=== PATIENT | female | born 1945 | race Caucasian/White ===

== ENCOUNTER 2025-01-26 07:27 | Inpatient (IN) | payer MEDICARE, SELFPAY ==
[2025-01-26] VITALS (7 sets, daily range): BP systolic 121–159; BP diastolic 47–78; PULSE 60–110; RESP 14–18; TEMP 36.4–36.9; O2SAT 94–96; BMI 30.6; BMI 29.6
--- NOTE | ~2025-01-26 | CT_ITS ---
EXAMINATION: CT ABDOMEN PELVIS WITH IV CONTRAST HISTORY: LLQ pain COMPARISON: There are no prior studies for available comparison. TECHNIQUE: CT scan of the abdomen and pelvis was performed following administration of 85 mL Omnipaque 350 using standard departmental protocol. Coronal and sagittal reformatted images were generated and reviewed. Oral contrast material was not administered at the request of the referring physician. This CT exam was performed with one or more of the following dose reduction techniques: automated exposure control, adjustment of the mA and/or kV according to patient size, use of iterative reconstruction technique. DLP: 507 mGy-cm FINDINGS: LOWER CHEST: The visualized lung bases are clear. There is no pleural effusion. CARDIOVASCULATURE: The heart is normal in size. There is no pericardial effusion. LIVER: The liver is normal in size and contour. No liver mass is identified. The hepatic and portal veins are patent. GALLBLADDER / BILE DUCTS: The gallbladder is surgically absent. There is mild intra and extrahepatic biliary ductal dilatation, likely on the basis of prior cholecystectomy. SPLEEN: The spleen is normal in size. No focal splenic lesion is identified. PANCREAS: The pancreas is unremarkable in appearance. ADRENAL GLANDS: Within normal limits. KIDNEYS/RETROPERITONEUM: There is a 2 mm nonobstructing calculus at the upper pole of the right kidney and a 3 mm nonobstructing calculus at the lower pole. No left renal calculi are identified. There is no hydronephrosis. No renal masses are identified. LYMPH NODES: No abdominal or pelvic lymphadenopathy. VASCULATURE: The abdominal aorta demonstrates atherosclerotic calcification, but is normal in caliber. MESENTERY/PERITONEUM: No free fluid. No masses. There is no free intraperitoneal gas. STOMACH: The stomach is collapsed, limiting evaluation. SMALL BOWEL: The small bowel is normal in caliber. COLON: There is a large amount of stool throughout the colon. There is diverticulosis of the descending and sigmoid colon. There is focal wall thickening and pericolonic inflammatory stranding at the junction of the descending and sigmoid colon, consistent with diverticulitis. There is no associated intraluminal gas or loculated fluid collection. APPENDIX: The appendix is not seen, however no inflammatory changes are seen adjacent to the cecum. URINARY BLADDER/PELVIC ORGANS: The urinary bladder is collapsed, limiting evaluation. The patient is status post hysterectomy. BONES / SOFT TISSUES: There is moderate levoscoliosis and degenerative disc disease of the spine. CT/CT abdomen pelvis w IV con IMPRESSION: Diverticulitis at the junction of the descending and sigmoid colon as described. Electronically signed by: Ed Nixon MD 01/26/2025 09:08 AM EDT
--- NOTE | 2025-01-26 07:34 | ECG_ITS ---
Test Reason : chest pain Blood Pressure : */* mmHG Vent. Rate : 90 BPM Atrial Rate : 90 BPM P-R Int : 140 ms QRS Dur : 114 ms QT Int : 404 ms P-R-T Axes : 47 11 20 degrees QTcB Int : 494 ms Normal sinus rhythm Right bundle branch block Abnormal ECG When compared with ECG of 27-Apr-2012 12:39, Right bundle branch block present Referred By: Erika Francis Electronically Signed By: Brady Samano
--- OUTSIDE RECORDS SUMMARY | 2025-01-26 07:52 | XMS_ITS ---
[facility] Team Organization Name Specialty Phone Email Start Date End Da te [facility] Madelin Reyes DO Primary Care 04/22/202201/13
--- OUTSIDE RECORDS SUMMARY | 2025-01-26 07:52 | XMS_ITS | Clinical Summary ---
Author Organization [address] [facility] Address [address] [place] [address] Phone Care Team Providers Care Agronomy Instructor Name Role Phone Magalys Espinoza MD Primary Care Provider Allergies Active Allergy Reactions Criticality Noted Date Comments Acetaminophen-Codeine Nausea And Vomiting 05/14 Codeine 05/26/2006 Naproxen Swelling 12/11/2009 Medications levothyroxine (SYNTHROID, LEVOTHROID) 50 mcg tablet Take 1 tablet (50 mcg total) by mouth 1 (one) time each day. 4 Active simvastatin (ZOCOR) 20 mg tablet Take 1 tablet (20 mg total) by mouth 1 (one) time each day. 4 Active calcium carbonate-vitamin D3 500 mg-15 mcg (600 unit) tablet TAKE 1 TABLET BY MOUTH EVERY DAY 4 Active senna 8.6 mg tablet TAKE 1 TABLET BY MOUTH DAILY NEEDED FOR OTHER. 4 Active diclofenac (VOLTAREN) 1 % topical gel APPLY TOPICALLY 1 ACTUATION TWICE A DAY NEEDED FOR SEVERE JOINT PAIN 4 Active magnesium oxide (MAG-OX) 400 mg magnesium tablet Take by mouth. Active meloxicam (MOBIC) 15 mg tablet Take 15 mg by mouth daily. Active multivitamin (MULTIPLE VITAMINS ORAL) Take by mouth. Active calcium carbonate-vitamin D3 600 mg-5 mcg (200 unit) per tabletIndications :Age-related osteoporosis without current pathological fracture TAKE 1 TABLET BY MOUTH EVERY DAY 90 tablet 1 5 Active losartan-hydroCHL OROthiazide (HYZAAR) 100-12.5 mg per tabletIndications :Essential (primary) hypertension TAKE 1 TABLET BY MOUTH EVERY DAY 90 tablet 1 5 Active Hospital, Clinic, or Other Facility Administered Medication Ordered Dose Route Frequency Start Date End Date Status TC-99M tetrofosmin P radio-isotope injection 10.7 millicurie 10.7 millicurie IV Once in imaging 12/28/2024 12/28/2024 Ende d regadenoson (LEXISCAN) injection 0.4 mg 0.4 mg IV Once in imaging 12/28/2024 12/28/2024 End ed TC-99M tetrofosmin P radio-isotope injection 32.1 millicurie 32.1 millicurie IV Once in imaging 12/28/2024 12/28/2024 Ende d Active Problems Problem Noted Date Diagnosed Date Other chest pain 12/09/2024 Assessment & Plan (12/09/2024 1:39 PM EDT): Will need to assess ischemia. Will schedule nuclear perfusion stress test with either exercise or regadenoson. Will check BMP, TSH. Nonrheumatic aortic valve stenosis 12/06/2024 Assessment & Plan (12/09/2024 1:39 PM EDT): By physical exam, aortic stenosis does not sound severe. Will update echocardiogram. Orders: Transthoracic echocardiogram (TTE) complete with PRN contrast, bubble, strain, and 3D order panel; Future Episodic cluster headache, not intractable 05/14 Murmur, heart 11/26/2022 Osteoporosis without current pathological fractu re 10/15/2022 Elevated ferritin level 09/15/2022 Arachnoid cyst 07/05/2018 Stress incontinence of urine 12/03/2017 Allergic rhinitis 04/20/2017 Arthritis 04/20/2017 Overview (05/06/2024): Hands, knees, Dr Jose DDD (degenerative disc disease), cervical 2016 DDD (degenerative disc disease), lumbar 04/20/20 17 Diverticulosis 04/20/2017 Overview (05/06/2024): CN 2010 Esophageal reflux 04/20/2017 History of total knee replacement, bilateral 11/2016 HTN (hypertension) 04/20/2017 Hypothyroid 04/20/2017 Migraines 04/20/2017 Osteopenia 04/20/2017 Overview (05/06/2024): Last DEXA 01/22/17 Pure hypercholesterolemia 04/20/2017 Encounters Date Type Department Care Team Description 12/30/2024 Telephone [facility] Cardiology [facility] - [address] [place] [address] Suze Jerez MA Results (See note) 12/28/2024 9:00 AM EDT Ancillary Procedure [facility] Cardiology [facility] - [address] [place] [address] Chest pain, unspecified type 12/12/2024 3:00 PM EDT Ancillary Procedure [facility] - [address] [place] [address] History of aortic stenosis; Nonrheumatic aortic valve stenosis 12/09/2024 8:20 AM EDT Office Visit [facility] Cardiology [facility] - [address] [place] [address] Ariadna Thompson MD Chest pain, unspecified type (Primary Dx); History of aortic stenosis; Other fatigue; Nonrheumatic aortic valve stenosis; Other chest pain from Last 3 Months Immunizations Name Administration Dates Next Due Influenza Quadravalent, MDCK , 0.5ml, with preservative (Flucelvax) 6mo and older 05/12/2017 Influenza trivalent, 0.5mL ( Fluad) 65yo and older 04/04/2022,04/26/2021,04/11/2020,04/15 Moderna Covid-19 Bivalent, O riginal + Ba.1 (Non-US Tradename Spikevax Bivalent) 06/14/2021 Moderna SARS-CoV-2 COVID-19, mRNA, LNP-S, preservative free 06/14/2021 Pneumococcal conjugate 13 va lent (Prevnar 13, PCV13) 2mo and older 11/27/2014 Pneumococcal polysaccharide 23 valent (Pneumovax 23) 2yo and older 06/15/2012 Tdap Tetanus diptheria acell ular pertussis (Boostrix; Adacel) 7yo and older 05/31/2015 Surgical History Surgery Date Site/Laterality Comments COLONOSCOPY 01/17/2010 PROCEDURE: HISTORICAL COLONOSCOPY CHOLECYSTECTOMY 1979 PROCEDURE: HISTORICAL CHOLECYSTECTOMY TONSILLECTOMY age [age] PROCEDURE: HISTORICAL TONSILLECTOMY TOTAL KNEE ARTHROPLASTY 2005 Bilateral PROCEDURE: HISTORICAL TOTAL KNEE REPLACE HYSTERECTOMY 1979 PROCEDURE: HISTORICAL TOTAL HYSTERECTOMY WITH BSO; COMMENT: fibroids APPENDECTOMY PROCEDURE: HISTORICAL APPENDECTOMY CHOLECYSTECTOMY 1979 PROCEDURE: HISTORICAL CHOLECYSTECTOMY Medical History Medical History Date Comments Allergic rhinitis 04/20/2017 DX:Allergic rh initis DDD (degenerative disc disea se), cervical 04/20/2017 DX:DDD (degenerative disc di sease), cervical DDD (degenerative disc disea se), lumbar 04/20/2017 DX:DDD (degenerative disc di sease), lumbar Diverticulosis 04/20/2017 DX:Diverticulosi s; COMMENT: CN 2009 Esophageal reflux 04/20/2017 DX:Esophageal reflux History of replacement of mihai th shoulder joints 04/20/2017 DX:History of replacement of both shoulder joints History of total knee replac ement, bilateral 04/20/2017 DX:History of total knee rep lacement, bilateral HTN (hypertension) 04/20/2017 DX:HTN (hyper tension) Hypothyroid 04/20/2017 DX:Hypothyroid Migraines 04/20/2017 DX:Migraines Osteoarthritis 04/20/2017 DX:Osteoarthriti s; COMMENT: Hands, knees, Dr Jose Osteopenia 04/20/2017 DX:Osteopenia; C OMMENT: Last DEXA 01/22/17 Pure hypercholesterolemia 04/20/2017 DX:Pur e hypercholesterolemia Shingles rash 2014 DX:Shingles rash Cataract 2020 DX:Cataract; COM MENT: left and right eye Family History Medical History Relation Name Comments Heart attack Brother COD No Known Problems Daughter 1 Hypertension Daughter 2 Arthritis Father Colon cancer Father CABG in his 80' s Nephrolithiasis Father Diabetes Mother Arthritis Sister 1 Nephrolithiasis Sister 1 Nephrolithiasis Sister 2 Relation Name Status Comments Brother Daughter 1 Alive Daughter 2 Alive Father Mother Sister 1 Alive Sister 2 Alive Social History Tobacco Use Types Packs/Day Years Used Date Smoking Tobacco: Never Smokeless Tobacco: Never Alcohol Use Standard Drinks/Week Comments No 0 (1 standard drink = 0.6 oz pur e alcohol) Comments Unknown Sex and Gender Information Value Date Recorded Sex Assigned at Not on file Legal Sex Female 5:00 PM EST Gender Identity Not on file Sexual Orientation Not on file Obstetrics History Last Filed Vital Signs Vital Sign Reading Time Taken Comments Blood Pressure 151/75 12/28/2024 9:18 AM EDT Pulse 69 12/09/2024 8:16 AM EDT Temperature - - Respiratory Rate 16 06/27/2024 10:21 AM EST Oxygen Saturation 96% 12/09/2024 8:16 AM EDT Inhaled Oxygen Concentration - - Weight 72.1 kg (159 lb) 12/28/2024 9:07 AM EDT Height 162.6 cm (5' 4 ) 12/28/2024 9:07 AM EDT Body Mass Index 27.29 12/28/2024 9:07 AM EDT Plan of Treatment Upcoming Encounters Date Type Department Care Team (Late st Contact Info) Description 02/23/2025 10:40 AM EDT Office Visit [facility] [address] [facility] [address] [place] [address] Yue Adam NP [address] [place] [id number] Health Maintenance Due Date Last Done Comments Zoster Vaccines (1 of 2) 1994 RSV Immunization Adult Patients (1 - 1-dose 75+ series) 2019 Medicare Annual Wellness Visit 05/14/2022 Social Influencers of Health Screening 05/14/2022 COVID-19 Vaccine ( season) 2024 06/14/2021, 06/14/2021, 09/13/2020, Additional history exists Depression Screening 06/15/2024 02/11/2024 Influenza Vaccine (#1) 2025 , 04/04/2022, 04/26/2021, Additional history exists Hypertension/CHF/CAD Annual BMP Blood Test 03/14/2025 03/14/2024, 03/14/2024, 11/12/2023 Falls Risk Assessment 05/26/2025 05/26/2024 DTaP,Tdap,and Td Vaccines (2 - Td or Tdap) 05/31/2025 05/31/2015 Cholesterol Screening (Lipid Panel) 04/04/2027 04/04/2022 Osteoporosis Screening (Bone Density Screening) 10/06/2032 10/06/2022, 04/17/2020 Pneumococcal Vaccine: 50+ Years Completed 11/27/2014, 06/15/2012 HIB Vaccines Aged Out No longer eligi ble based on patient's age to complete this topic HPV Vaccines Aged Out No longer eligi ble based on patient's age to complete this topic Hepatitis A Vaccines Aged Out No long er eligible based on patient's age to complete this topic Hepatitis B Vaccines Aged Out No long er eligible based on patient's age to complete this topic IPV Vaccines Aged Out No longer eligi ble based on patient's age to complete this topic MMR Vaccines Aged Out No longer eligi ble based on patient's age to complete this topic Meningococcal ACWY Vaccine Aged Out N o longer eligible based on patient's age to complete this topic Meningococcal B Vaccine Aged Out No l onger eligible based on patient's age to complete this topic RSV Immunization Patients Under 20 months Aged Out No longer eligible based on patient's age to complete this topic Varicella Vaccines Aged Out No longer eligible based on patient's age to complete this topic Procedures Procedure Name Priority Date/Time Associated Diagnosis Comments NM LEXISCAN STRESS TEST W/ MYOCARDIAL PERFUSION Routine 12/28/2024 11:56 AM EDT Chest pain, unspecified type TRANSTHORACIC ECHOCARDIOGRAM (TTE) COMPLETE Routine 12/12/2024 3:30 PM EDT History of aortic stenosis Nonrheumatic aortic valve stenosis B-TYPE NATRIURETIC PEPTIDE Routine 12/09/2024 9:31 AM EDT Chest pain, unspecified type THYROID STIMULATING HORMONE Routine 12/09/2024 9:31 AM EDT Chest pain, unspecified type Other fatigue ECG 12-LEAD Routine 12/09/2024 8:22 AM EDT History of aortic stenosis ANNUAL BMP BLOOD TEST Routine 03/14/2024 DEPRESSION SCREENING Routine 02/11/2024 DXA BONE DENSITY STUDY 1+ SITS AXIAL SKEL Routine 10/06/2022 2:20 PM EDT Encounter for screening for osteoporosis LIPID PANEL Routine 04/04/2022 from Last 3 Months or Most Recently Relevant to Health Maintenance Results * NM LEXISCAN STRESS TEST W/ MYOCARDIAL PERFUSION (12/28/2024 11:56 AM EDT) Exercise/injec tion duration (min) 0 CV PACS STRESS Exercise/injec tion duration (sec) 34 CV PACS STRESS Peak SBP 151 mmHg CV PACS STRESS Peak DBP 75 mmHg CV PACS STRESS Peak HR 111 bpm CV PACS STRESS Baseline HR 63 bpm CV PACS STRESS Baseline SBP 151 mmHg CV PACS STRESS Baseline DBP 75 mmHg CV PACS STRESS Estimated workload 1.0 METS CV PACS STRESS Percent HR 79 % CV PACS STRESS Rate Pressure Product 16,761.0 mmHg*bpm CV PACS STRESS Target HR 119 bpm CV PACS STRESS TID 1.04 CV PACS STRESS Nuc Stress EF 88 % CV PAC S STRESS Nuc Rest EF 79 % CV PACS STRESS BSA 1.8 m2 CV PACS STRESS Anatomical Region Laterality Modality Nuclear Medicine 12/28/2024 10:1 1 AM EDT 12/28/2024 10:47 AM EDT Narrative 12/28/2024 2:11 PM EDT LV perfusion is normal. No evidence of ischemia or infarct by MPI after attenuation correction. Gated SPECT imaging showing normal LVEF >75%. Vasodilator (regadenoson) stress test was performed . Normal blood pressure response. ECG stress portion as documented below. Stress Findings A pharmacological stress test was performed using regadenoson, 0.4 mg IV over 10-15 seconds, followed by radiopharmacological injection 10 seconds post infusion. Total stress time was 0 min and 34 sec. Reversal medication aminophylline given. Blood pressure demonstrated a normal response. Heart rate demonstrated a normal response. The patient reported dizziness during the stress test that resolved with the administration of aminophylline. ECG 79-year-old female with a past medical history significant for hypertension, hyperlipidemia, chest discomfort and fatigue, in to rule out ischemia. On losartan during testing. Baseline EKG normal sinus rhythm T wave inversion on V2 and V3 during stress. T wave inversions in V2 and V3 in recovery. Nondiagnostic in the setting of a pharmacological nuclear stress test. Nuclear Study Quality Study technique: MPI, SPECT, multi, rest and stress, 1 day and gated. Overall image quality is good. CT attenuation correction was utilized. No radiopharmaceutical dose was extravasated. Perfusion Defect Conclusion There is no evidence of transient ischemic dilation (TID). Stress Function Comments Stress ejection fraction is 88%. Rest Function Comments Resting ejection fraction was 79%. Normal regional wall motion and thickening. CT Findings CT was performed for attenuation correction purposes not for diagnosis. Heavy coronary calcifications seen. Small splenic vessel calcifications and tiny focal R breast calcification. Perfusion Comments LV perfusion is normal. No fixed or reversible defects at rest or stress. us Ariadna Thompson MD CV STRESS PROCEDURES Final Resul t * (ABNORMAL) TRANSTHORACIC ECHOCARDIOGRAM (TTE) COMPLETE (12/12/2024 3:30 PM EDT) Left Atrium Minor [place] 4.9 cm CV PACS Left Atrium Major [place] 4.9 cm CV PACS LA Area Sys (A2C) 17 cm2 CV PACS LA Area Sys (A4C) 18 cm2 CV PACS LA Volume (BP) 52 mL CV PACS LA Size 4.3 cm CV PACS RA Area 12.1 cm2 CV PACS RA 2D Volume 30 mL CV PACS AV Regurgitation PHT 562 ms CV PACS AR Max Velocity 2.5 m/s CV PACS AV Peak Gradient 26 mmHg CV PACS AV Peak Moncho 2.5 m/s CV PACS AV Peak Gradient 24 mmHg CV PACS AV Mean Gradient 11 mmHg CV PACS Ao VTI 55.6 cm CV PACS AV Area Continuity Equation 1.2 cm2 CV PACS AV Area Peak Velocity 1.2 cm2 CV PACS Aortic Arch 3.0 cm CV PACS Ascending Aorta 3.7 cm CV PACS Aortic Sinus Valsalva 2.9 cm CV PACS IVC Proximal 1.4 cm CV PACS IVSD 1.1(A) 0.6 - 0.9 cm CV PACS LVIDD 4.3 3.8 - 5.2 cm CV PACS LVIDS 2.7 2.2 - 3.5 cm CV PACS LVOT Diameter 2.0 cm CV PACS LVOT Mean Moncho 0.5 m/s CV PACS LVOT Mean Grad 1 mmHg CV PACS LVOT Mean Grad 1 mmHg CV PACS LVOT Mean Grad 1 mmHg CV PACS LVOT Mean Grad 1 mmHg CV PACS LVOT Peak VTI 20.9 cm CV PACS LVOT Peak Moncho 0.9 m/s CV PACS LVOT Peak Gradient 3 mmHg CV PACS LVPWD 1.1(A) 0.6 - 0.9 cm CV PACS MV E' Tissue Velocity Lateral 5 cm/s CV PACS MV E' Tissue Velocity Septal 6 cm/s CV PACS LVOT Area 3.1 cm2 CV PACS LVOT Stroke Volume 66 mL CV PACS MV Deceleration [place] 2.6 m/s2 CV PACS E Wave Deceleration Time 248(A) 119 - 242 ms CV PACS MV PHT 73 ms CV PACS MV Peak A Moncho 0.99 m/s CV PACS MV Peak E Moncho 0.65 m/s CV PACS MV Mean Gradient 2 mmHg CV PACS MV VTI 31.0 cm CV PACS Mitral Valve Max Velocity 1.2 m/s CV PACS MV Peak Gradient 5 mmHg CV PACS MV Area PHT 3.0 cm2 CV PACS MV Area Continuity Equation 2.1 cm2 CV PACS PV Acceleration Time 116 ms CV PACS PV Acceleration Time 113 ms CV PACS PV Acceleration Time 115 ms CV PACS PV Mean Gradient 2 mmHg CV PACS PV VTI 24.7 cm CV PACS PV Peak Velocity 1.1 m/s CV PACS PV Peak Gradient 5 mmHg CV PACS RV Diastolic Basal Dimension 4.3(A) 2.5 - 4.1 cm CV PACS RV S' 11 cm/s CV PACS TAPSE 26 mm CV PACS TR Peak Velocity 2.70 m/s CV PACS TR Peak Gradient 29 mmHg CV PACS E/E' Ratio Septal 11 CV PACS E/E' Ratio Averaged 12 CV PACS Relative Wall Thickness ratio 0.51 CV PACS LVOT:AV VTI Index 0.38 CV PACS FS 37 % CV PACS LV Mass 2D 163 g CV PACS MV VTI:LVOT VTI ratio 1.5 CV PACS LVOT flow 157 mL/s CV PACS AV Velocity Ratio 0.36 CV PACS E/A Ratio 0.7 CV PACS E/E' Ratio Lateral 13 CV PACS BSA 1.8 m2 CV PACS LA Volume Index (BP) 29 mL/m2 CV PACS LVIDD Index 2.43 cm/m2 CV PACS LVIDS Index 1.53 cm/m2 CV PACS LV Mass Index 2D 92(A) 44 - 88 g/m2 CV PACS LVOT Stroke Index 37 mL/m2 CV PACS LA Dimension Index 2D 2.4 cm/m2 CV PACS RA 2D Volume Index 17 15 - 27 mL/m2 CV PACS VERÓNICA Index (VTI) 0.67 cm2/m2 CV PACS VERÓNICA Index (Pk Moncho) 0.68 cm2/m2 CV PACS Ascending Aorta Index 2.09 cm/m2 CV PACS Right Ventricular Peak Systolic Pressure 32 mmHg CV PACS Est. RA Pressure 3 mmHg CV PACS Anatomical Region Laterality Modality Ultrasound Narrative 12/13/2024 10:35 AM EDT Left ventricle cavity size is normal. There is mild concentric hypertrophy. Systolic function is normal with an ejection fraction of 60-65%. There are no regional LV wall motion abnormalities. There is Grade I (mild) diastolic dysfunction. Right ventricle cavity is normal. Right ventricular systolic function is normal. Aortic valve demonstrates mild stenosis. Trace aortic valve regurgitation. The right ventricular systolic pressure is normal. The RVSP is estimated at 32 mmHg. Compared to previous study of 11/06/2022, there are no significant change. Left Ventricle Left ventricle cavity size is normal. There is mild concentric hypertrophy. Systolic function is normal with an ejection fraction of 60-65%. There are no regional LV wall motion abnormalities. There is Grade I (mild) diastolic dysfunction. Right Ventricle Right ventricle cavity appears normal. Systolic function is normal. Left Atrium Left atrium cavity size is normal. Right Atrium Right atrium cavity is normal. IVC/SVC Inferior vena cava structure is normal. RA pressures is estimated to be 3 mmHg (IVC diameter <21 mm and decreases >50% during inspiration). Mitral Valve The leaflets are mildly thickened. There is trace regurgitation. There is no evidence of mitral valve stenosis. Tricuspid Valve Tricuspid valve structure is normal. There is mild regurgitation with a central jet. There is no evidence of tricuspid valve stenosis. The right ventricular systolic pressure is normal. The RVSP is estimated at 32 mmHg. Aortic Valve Number of aortic valve cusps cannot be determined. The leaflets are mildly thickened. There is trace regurgitation with a centrally directed jet. There is mild stenosis. Pulmonic Valve Pulmonic valve structure is normal. There is trace pulmonic valve regurgitation. There is no evidence of pulmonic valve stenosis. Ascending Aorta The ascending aorta is (3.7 cm). Pericardium Pericardium appears normal. There is no pericardial effusion. Study Details Overall the study quality was adequate. us Ariadna Thompson MD CV ECHO PROCEDURES Final Result * TSH (12/09/2024 9:31 AM EDT) TSH 1.17 0.40 - 4.00 mcIU/mL LAB CHEMISTRY METHOD 12/09/2024 11:56 AM EDT [facility] Blood Venous blood specimen / Unknown Venipuncture / Unknown 12/09/2024 9:31 AM EDT 12/09/2024 11:11 AM EDT us Ariadna Thompson MD LAB BLOOD ORDERABLES Final Resul t [facility] [address] [place] [address], * B-type natriuretic peptide (12/09/2024 9:31 AM EDT) BNP 26 <=100 pcg/mL LAB CHEMISTRY METHOD 12/09/2024 11:56 AM EDT [facility] Blood Venous blood specimen / Unknown Venipuncture / Unknown 12/09/2024 9:31 AM EDT 12/09/2024 11:16 AM EDT Ariadna Thompson MD LAB BLOOD ORDERABLES Final Resul t [facility] [address] [place] [address], * ECG 12 lead (12/09/2024 8:22 AM EDT) Pathologist [facility] Ventricular Rate ECG 69 BPM GEMUSE Atrial Rate 69 BPM GEMUSE P-R Interval 154 ms GEMUSE QRS Duration 82 ms GEMUSE Q-T Interval 434 ms GEMUSE QTc 465 ms GEMUSE P Wave [place] 77 degrees GEMUSE R [place] 62 degrees GEMUSE T [place] 70 degrees GEMUSE ECG Interpretation Normal sinus rhythm Borderline QT interval When compared with ECG of 24-APR-2009 10:20, No significant change was found Confirmed by Josselyn THOMPSON YUFENG ([id number]) on 12/09/2024 10:44:24 AM GEMUSE 12/09/2024 8:22 AM EDT 12/09/2024 10:44 AM EDT Ariadna Thompson MD ECG ORDERABLES Final Result Performing Organization Address City/[facility]/ZIP Co de Phone Number GEMUSE * Annual BMP Blood Test (03/14/2024) Pathologist [facility] Annual BMP Blood Test abstracted Historical Provider HEALTH MAINTENANCE Final Result * Depression Screening (02/11/2024) [facility] Depression Screening abstracted Historical Provider HEALTH MAINTENANCE Final Result * DXA BONE DENSITY STUDY 1+ SITS AXIAL SKEL (10/06/2022 2:20 PM EDT) Anatomical Region Laterality Modality Bone Densitometr y 09/15/2022 8:54 AM EDT Narrative 10/14/2022 7:02 PM EDT BONE DENSITY Lumbar Spine T-score is -1.4 (SD relative to 20-29 y/o adult) Z-score is +1.1 (SD relative to age matched peers) This is consistent with osteopenia by criteria defined by the WHO. Left Hip T-score is -2.7 Z-score is -0.5 This is consistent with osteoporosis by criteria defined by the WHO. Comparison exam(s): no statistically significant change in the bone density of the hip or L spine when compared to most recent bone density examination Confidence level is +/-95%. Impression: Based on the World Health Organization criteria, Alfred Norris should be classified as having osteoporosis. [facility] Department of Internal Medicine recommends using National Osteoporosis Foundation (NOF) guidelines in treatment decisions related to osteoporosis. NOF guidelines suggest considering treatment for postmenopausal women and men aged 50 or older presenting with the following: History of hip or vertebral fracture. T-score less than or equal to -2.5 (DXA) at the femoral neck, total hip, or spine, after appropriate evaluation to exclude secondary causes. Low bone mass (T-score between -1.0 and -2.5 at the femoral neck or spine) AND a 10-year probability of a hip fracture greater than or equal to 3% OR a 10-year probability of a major osteoporosis-related fracture greater than or equal to 20% based on the [place]-adapted WHO algorithm Please note that all treatment decisions require clinical judgment and consideration of individual patient factors, including patient preferences, co-morbidities, previous drug use, risk factors not captured in the FRAX model (e.g., frailty, falls, vitamin D deficiency, increased bone turnover, interval significant decline in bone density) and possible under- or over-estimation of fracture risk by FRAX. Procedure Note Alex Howe MD - 07/20/2023 BONE DENSITY Lumbar Spine T-score is -1.4 (SD relative to 20-29 y/o adult) Z-score is +1.1 (SD relative to age matched peers) This is consistent with osteopenia by criteria defined by the WHO. Left Hip T-score is -2.7 Z-score is -0.5 This is consistent with osteoporosis by criteria defined by the WHO. Comparison exam(s): no statistically significant change in the bonedensity of the hip or L spine when compared to most recent bone densityexamination Confidence level is +/-95%. Impression: Based on the World Health Organization criteria, Alfredamol Norris should beclassified as having osteoporosis. [facility] Department of Internal Medicine recommendsusing National Osteoporosis Foundation (NOF) guidelines in treatmentdecisions related to osteoporosis. NOF guidelines suggest consideringtreatment for postmenopausal women and men aged 50 or older presentingwith the following: History of hip or vertebral fracture. T-score less than or equal to -2.5 (DXA) at the femoral neck, total hip,or spine, after appropriate evaluation to exclude secondary causes. Low bone mass (T-score between -1.0 and -2.5 at the femoral neck or spine)AND a 10-year probability of a hip fracture greater than or equal to 3% ORa 10-year probability of a major osteoporosis-related fracture greaterthan or equal to 20% based on the [place]-adapted WHO algorithm Please note that all treatment decisions require clinical judgment andconsideration of individual patient factors, including patientpreferences, co-morbidities, previous drug use, risk factors not capturedin the FRAX model (e.g., frailty, falls, vitamin D deficiency, increasedbone turnover, interval significant decline in bone density) and possibleunder- or over-estimation of fracture risk by FRAX. Madelin Reyes DO [facility] DXA PROCEDURES Final Result * (ABNORMAL) Lipid panel (04/04/2022) LDL/HDL Ratio 3 0 - 4 Triglycerides 171(A) 0 - 150 mg/dL Cholesterol 199 0 - 200 mg/dL HDL 61 >=40 mg/dL LDL Cholesterol 104(A) 0 - 100 mg/dL Blood Venous blood specimen / Unknown Historical Provider LAB BLOOD ORDERABLES Leah ray Result from Last 3 Months or Most Recently Relevant to Health Maintenance Insurance [employer] [place] Care Teams Agronomy Instructor Relationship Specialty Start Date End Date Magalys Espinoza MD [address] [phone] PCP - General Internal Medicine 08/04/24
[2025-01-26 08:03] LABS: MANUAL DIFF FLAG NO
[2025-01-26 08:05] LABS: Hematocrit 34.4 % (37.0-47.0); Hemoglobin 11.6 g/dl (12.0-16.0); Imm Gran Abs Auto 0.06 X10*3/uL (0.00-0.03); Imm Gran Pct Auto 0.4 % (0.0-0.4); Lymphocytes Absolute Auto 1.8 X10*3/uL (1.2-4.9); Mean Corpuscular HGB Conc 33.7 g/dl (31.0-35.0); Mean Corpuscular Hemoglobin 29.7 pg (27.0-33.0); Mean Corpuscular Volume 88.2 fL (80.0-98.0); NRBC Abs Auto 0.000 X10*3/uL (0.0-0.012); NRBC Pct Auto 0.0 /100WBC (0.0-0.2); Platelet Count 266 X10*3/uL (160-400); Red Blood Count 3.90 X10*6/uL (4.20-5.50); White Blood Count 14.7 X10*3/uL (4.8-10.8)
--- NOTE | 2025-01-26 08:18 | ED_ITS ---
HPI - Abdominal Pain General Chief Complaint: Abdominal Pain Stated Complaint: CONSTIPATION,LLQ PAIN,CP,CARDENAS,BP 177/92 PER EMS Source: patient and EMS Mode of arrival: EMS Limitations: no limitations History of Present Illness ED Provider: ELISABETH HPI narrative: 79 yo female with PMH of HTN, hypothyroidism, HLD, prior cholecystectomy and hysterectomy who started with LLQ pain at 10pm last night with nausea. No vomiting. Has not had a good BM in 4 days but did pass gas this AM. She has no urinary symptoms. She had a routine normal colonoscopy in 2019. She denies GIB symptoms. She told EMS she had some chest pain as well but she has no pain now and was given ASA 324mg. She has no known CAD. She has no hx of renal colic, colitis, diverticulitis. MD elicited complaint: abdominal pain Pertinent past history: constipation Onset (ago): day(s) (last night) Pain Consistency: constant Location: LLQ Severity: moderate Quality: stabbing and aching Radiation: none Migration to: no migration Exacerbating factors: movement Relieving factors: nothing Associated symptoms: nausea Related Data Allergies Allergy/AdvReac Type Severity Reaction Status Date / Time diclofenac (DICLOFENAC) Allergy Severe GI PAIN Verified 01/26/25 07:38 naproxen (NAPROXEN) Allergy Severe FLUID Verified 01/26/25 07:38 RETENTION oxycodone (OXYCODONE) Allergy Severe DISORIENTED Verified 01/26/25 07:38 /LETHARGIC Tylenol/Codeine #3 Allergy Severe Gastrointestinal Uncoded 01/26/25 07:38 Upset Review of Systems Review of Systems Constitutional : No Weight loss, No Fever, No Chills ENT/Mouth : No sore throat, No Rhinorrhea Eyes: No Swelling, No Redness Cardiovascular : No Chest Pain, No SOB, No edema Respiratory : No Cough, No Sputum, No Wheezing Gastrointestinal : Positive Nausea, no Vomiting, no Diarrhea, positive abdominal Pain, No Hematochezia, No Melena Genitourinary : No Dysuria, No Urinary Frequency, No Hematuria, No Urgency Musculoskeletal : No joint pain, No Myalgias, No Joint Swelling Skin : No Skin Lesions, No rash Neuro : No Weakness, No Numbness, No Dizziness, No Headache All other systems reviewed and are negative. [facility] Past Medical History Attestation statement: The following information was validated with the patient. Source: old records reviewed Medical History (Updated 01/26/25 @ 11:30 by Erika Francis DO) Hypothyroidism HLD (hyperlipidemia) HTN (hypertension) Surgical History (Updated 01/26/25 @ 08:27 by Erika Francis DO) H/O: hysterectomy S/P cholecystectomy Social History Social History Smoked in Last 30 Days: No Use of substances other than those prescribed or required for medical reasons: No Advance Directives: No Advance Directives Information Provided: Yes Physical Exam ED Vital Signs: Vital Signs - 24 hr 01/26/25 07:35 Temperature 98.4 F Pulse Rate 95 Respiratory Rate 18 Blood Pressure 138/63 Pulse Oximetry 96 Oxygen Delivery Method Room Air BMI result Body Mass Index 30.6 Appearance: Alert. Oriented X3. No acute distress. Eyes: Pupils equal, round and reactive to light. ENT: Pharynx normal. Neck: Normal inspection. Neck supple. CVS: Normal heart rate and rhythm. Pulses normal. Respiratory: No respiratory distress. Breath sounds normal. Abdomen: Soft and moderate LLQ ttp no rebound or gurading Skin: Skin warm and dry. Normal skin color. Normal skin turgor. Extremities: No lower extremity edema. No calf ttp Neuro: Oriented X 3. No motor deficit. No sensory deficit. CN2-12 intact Course Course Course Narrative: elevated WBC count with pain concern for infectious source 834am - IV zosyn ordered Reevaluation(s) Reevaluation #1: c/o chest pain 920am will repeat EKG, give ativan she is not sure if it is anxiety, c/o chest pressure, trop ordered 10am Medical Decision Making Medical Decision Making MDM Narrative: 79 yo female with PMH of HTN, hypothyroidism, HLD, prior cholecystectomy and hysterectomy here with LLQ pain nausea since yesterday she is very tender on exam but abdomen is not acute will obtain labs, CT scan, start on IVF, zofran, tylenol and IV morphine. Possible renal colic, mass, diverticular disease. Given her c/o chest pain though she denies it I did order EKG and troponin. Low susp for ACS/VTE. Differential Diagnosis Differential Diagnoses: The differential diagnosis associated with the presentation includes renal colic, SBO, diverticular pathology, mass Admission/Observation Consideration of admission/observation: Escalation of care including admission/observation considered admit for intractable, n/v, pain trop flat x 2, EKG neg x 2 Lab Data [facility] Lab Attestation statement: I reviewed the patient's lab results. 01/26/25 07:58 01/26/25 07:58 Labs: Lab Results 01/26/25 01/26/25 01/26/25 Range/Units 07:53 07:58 08:31 WBC 14.7 H (4.8-10.8) X10*3/uL RBC 3.90 L (4.20-5.50) X10*6/uL Hgb 11.6 L (12.0-16.0) g/dl Hct 34.4 L (37.0-47.0) % MCV 88.2 (80.0-98.0) fL MCH 29.7 (27.0-33.0) pg MCHC 33.7 (31.0-35.0) g/dl RDW 12.1 (11.0-16.0) % Plt Count 266 (160-400) X10*3/uL MPV 9.1 L (9.4-12.3) fL Immature Gran % (Auto) 0.4 (0.0-0.4) % Neut % (Auto) 77.6 H (45-73) % Lymph % (Auto) 12.2 L (20-40) % [place] % (Auto) 9.2 (2-11) % Eos % (Auto) 0.2 (0-4) % Baso % (Auto) 0.4 (0-2) % Lymph # (Auto) 1.8 (1.2-4.9) X10*3/uL [place] # (Auto) 1.4 H (0.1-1.2) X10*3/uL Eos # (Auto) 0.0 (0.0-0.4) X10*3/uL Baso # (Auto) 0.1 (0.0-0.2) X10*3/uL Abs Immat Gran (auto) 0.06 H (0.00-0.03) X10*3/uL Absolute Neuts (auto) 11.4 H (2.0-8.3) x10*3/uL Absolute Nucleated RBC 0.000 (0.0-0.012) X10*3/uL Nucleated RBC % (auto) 0.0 (0.0-0.2) /100WBC Sodium 138 (135-145) mmol/L Potassium 4.0 (3.3-5.1) mmol/L Chloride 105 (96-108) mmol/L Carbon Dioxide 24 (22-29) mmol/L Anion Gap 13 (12-20) BUN 23 H (9-16) mg/dL Creatinine 0.67 (0.5-1.4) mg/dL Estim Creat Clear Calc 66.4 Estimated GFR > 60 Random Glucose 124 H (60-115) mg/dL Lactic Acid 2.2 H* (0.5-2.0) mmol/L Calcium 9.6 (8.4-10.2) mg/dL Magnesium 1.7 (1.6-2.6) mg/dL Total Bilirubin 0.7 (0.0-1.0) mg/dL Direct Bilirubin 0.2 (0.0-0.5) mg/dL AST 34 H (5-31) U/L ALT 21 (0-31) U/L Alkaline Phosphatase 91 (39-117) U/L Troponin I High Sens < 2.7 (<3.5-17.0) ng/L Total Protein 6.9 (6.5-8.0) g/dL Albumin 4.0 (3.5-5.0) g/dL Lipase 24 (8-78) U/L Influenza Type A (PCR) NEGATIVE (Negative) Influenza Type B (PCR) NEGATIVE (Negative) RSV RNA Qual (PCR) NEGATIVE (Negative) SARS-CoV-2 RNA (RT-PCR) NEGATIVE (Negative) 01/26/25 Range/Units 10:33 WBC (4.8-10.8) X10*3/uL RBC (4.20-5.50) X10*6/uL Hgb (12.0-16.0) g/dl Hct (37.0-47.0) % MCV (80.0-98.0) fL MCH (27.0-33.0) pg MCHC (31.0-35.0) g/dl RDW (11.0-16.0) % Plt Count (160-400) X10*3/uL MPV (9.4-12.3) fL Immature Gran % (Auto) (0.0-0.4) % Neut % (Auto) (45-73) % Lymph % (Auto) (20-40) % [place] % (Auto) (2-11) % Eos % (Auto) (0-4) % Baso % (Auto) (0-2) % Lymph # (Auto) (1.2-4.9) X10*3/uL [place] # (Auto) (0.1-1.2) X10*3/uL Eos # (Auto) (0.0-0.4) X10*3/uL Baso # (Auto) (0.0-0.2) X10*3/uL Abs Immat Gran (auto) (0.00-0.03) X10*3/uL Absolute Neuts (auto) (2.0-8.3) x10*3/uL Absolute Nucleated RBC (0.0-0.012) X10*3/uL Nucleated RBC % (auto) (0.0-0.2) /100WBC Sodium (135-145) mmol/L Potassium (3.3-5.1) mmol/L Chloride (96-108) mmol/L Carbon Dioxide (22-29) mmol/L Anion Gap (12-20) BUN (9-16) mg/dL Creatinine (0.5-1.4) mg/dL Estim Creat Clear Calc Estimated GFR Random Glucose (60-115) mg/dL Lactic Acid (0.5-2.0) mmol/L Calcium (8.4-10.2) mg/dL Magnesium (1.6-2.6) mg/dL Total Bilirubin (0.0-1.0) mg/dL Direct Bilirubin (0.0-0.5) mg/dL AST (5-31) U/L ALT (0-31) U/L Alkaline Phosphatase (39-117) U/L Troponin I High Sens 3.2 (<3.5-17.0) ng/L Total Protein (6.5-8.0) g/dL Albumin (3.5-5.0) g/dL Lipase (8-78) U/L Influenza Type A (PCR) (Negative) Influenza Type B (PCR) (Negative) RSV RNA Qual (PCR) (Negative) SARS-CoV-2 RNA (RT-PCR) (Negative) Independent Interpretation I performed an independent interpretation of an: EKG and CT Scan (+ diverticulitis and constipation) Interpretation: Rate: 90 Rhythm: NSR [place]: left Normal P waves. Normal RADHA. RBBB ST T wave : inverted t wave V1, normal BEATRIZ qTC: 494 prior studies:RBBB from 2012 The study has been interpreted contemporaneously by me. EKG #2 Rate: 76 Rhythm: NSR [place]: normal Normal P waves. Normal RADHA. Normal QRS complex. ST T wave : normal no BEATRIZ qTC: 483 prior studies: now no signs of RBBB The study has been interpreted contemporaneously by me. . Radiology Impression Discussion of test interpretation with radiology: I have reviewed the radiologist's reading. Medications Administered Discontinued Medications Generic Name Dose Route Start Last Admin Trade Name Freq PRN Reason Stop Dose Admin Acetaminophen 1,000 mg in 100 mls @ 400 mls/hr 01/26/25 07:34 01/26/25 08:57 Ofirmev IV 01/26/25 07:48 Infused ONCE ONE Infusion Piperacillin Sod/Tazobactam 50 mls @ 100 mls/hr 01/26/25 08:18 01/26/25 09:31 Sod 3.375 gm/ Sodium Chloride IV 01/26/25 08:47 Infused ONCE ONE Infusion Lactated Ringer's 1,000 mls @ 999 mls/hr 01/26/25 09:07 01/26/25 11:18 Lr IV 01/26/25 10:07 Infused .Q1H1M ONE Infusion Iohexol 100 ml 01/26/25 08:49 01/26/25 08:49 Iohexol 350 Mg/Ml 100 Ml Infus..Btl IV 01/26/25 08:50 85 ml ONCE ONE Administration Lorazepam 0.5 mg 01/26/25 09:19 01/26/25 09:31 Lorazepam 0.5 Mg Tablet PO 01/26/25 09:20 0.5 mg ONCE ONE Administration Morphine Sulfate 2 mg 01/26/25 07:47 01/26/25 08:07 Morphine Sulfate 2 Mg/Ml Cartridge IVPUSH 01/26/25 07:48 2 mg ONCE ONE Administration Protocol Ondansetron HCl 4 mg 01/26/25 07:34 01/26/25 08:07 Ondansetron Hcl 4 Mg/2 Ml Vial IVPUSH 01/26/25 07:35 4 mg ONCE ONE Administration Critical Care Time Critical Care Time Critical Care Time: Yes Total Critical Care Time: 35 Attestation: review or records, interpretation of CT scan, IVF, repeat IV morphine with some improvement in pain, admission and discussion with provider I attest to this time spent taking care of the patient Discharge Plan Discharge Clinical Impression: Diverticulitis, Abdominal pain, Acidosis, lactic, Nausea Patient Disposition: Admitted As Inpatient Print Language: Kazakh
[2025-01-26 08:28] LABS: Alanine Aminotransferase 21 U/L (0-31); Albumin Level 4.0 g/dL (3.5-5.0); Alkaline Phosphatase 91 U/L (39-117); Anion Gap 13 (12-20); Aspartate Amino Transferase 34 U/L (5-31); Blood Urea Nitrogen 23 mg/dL (9-16); Calcium 9.6 mg/dL (8.4-10.2); Carbon Dioxide 24 mmol/L (22-29); Chloride 105 mmol/L (96-108); Creatinine Clr Calc Pharmacy 66.4; Estimated Glomerular Filt Rate > 60; Lipase 24 U/L (8-78); Magnesium 1.7 mg/dL (1.6-2.6); Potassium 4.0 mmol/L (3.3-5.1); Sodium 138 mmol/L (135-145); Total Protein 6.9 g/dL (6.5-8.0)
[2025-01-26 08:37] LABS: Troponin-I High Sensitivity < 2.7 ng/L (<3.5-17.0)
[2025-01-26 08:49] LABS: Resp Syncy Virus RNA Qual PCR NEGATIVE (Negative); SARS COV2 PCR INHOUSE NEGATIVE (Negative)
[2025-01-26] MEDS: iohexoL 350 MG/ML 100 ML INFUS..BTL IV (08:49)
--- NOTE | 2025-01-26 09:19 | ECG_ITS ---
Test Reason : CP Blood Pressure : */* mmHG Vent. Rate : 76 BPM Atrial Rate : 76 BPM P-R Int : 154 ms QRS Dur : 78 ms QT Int : 430 ms P-R-T Axes : 59 15 24 degrees QTcB Int : 483 ms Normal sinus rhythm Possible Left atrial enlargement Borderline ECG When compared with ECG of 26-Jan-2025 07:47, Right bundle branch block is no longer Present Referred By: Erika Francis Electronically Signed By: Brady Samano
[2025-01-26] MEDS: Lactated Ringers 1,000 ML 999 ML IV (09:29)
--- NOTE | 2025-01-26 09:50 | PC.NURSE ---
pt to ED from home reporting sudden onset LLQ pain last night starting at 22:00. She states it was worse last night but on arrival still a 7/10. abd soft, tender to palpation of LLQ, pt guarding. Comes in with 18g IV placed by EMS. after a couple of hours in department pt reported recurrence of CP that she had at home. concerned it is anxiety. EKG done.
[2025-01-26 10:35] LABS: Reflex Lactate? Lactic Acid Added
[2025-01-26 10:56] LABS: Troponin-I High Sensitivity 3.2 ng/L (<3.5-17.0)
[2025-01-26] MEDS: Lactated Ringers 1,000 ML 80 ML IVCONT (11:34)
--- NOTE | 2025-01-26 11:57 | P.HPHOSP_ITS ---
History of Present Illness Date of Service: 01/26/25 Chief Complaint: LLQ abdominal pain The patient is an 79 yo F with a PMH of HTN, HLD, cholecystectomy, hysterectomy and constipation who presents to the emergency room with about a 1 day history of left lower quadrant abdominal pain, which is constant and stabbing/aching in nature. The patient endorses a history of chronic constipation with her last bowel movement about 4 days prior to hospitalization. She endorses similar but significantly milder symptoms about 1 month prior push resolved without treatment. Due to the ongoing nature of her symptoms, she presented to the emergency room. The patient also endorse chest pain. She reports she had workup last month for ongoing chest pain including a stress test and echocardiography which she reports were ?normal. EKG in the emergency room does not show any acute ischemic changes and her troponins are flat x2. The patient reports resolution of her chest pain and thinks it may have been related to anxiety from her abdominal pain. In the emergency room the patient's workup revealed WBC 14, BUN 23, lactate 2.2 with repeat 2.3, CT imaging showing diverticulosis and diverticulitis as well as large amount of stool throughout the colon. She was treated with IV Zofran, IV morphine, p.o. Ativan, 1 L IV fluids and IV antibiotics. She remained symptomatic and hence will be now admitted to the hospital for further care. Review of Systems 2 Review of Systems: Negative except HPI/interval history. [facility] Medical History (Updated 01/26/25 @ 11:30 by Erika Francis DO) Hypothyroidism HLD (hyperlipidemia) HTN (hypertension) Surgical History (Updated 01/26/25 @ 08:27 by Erika Francis DO) H/O: hysterectomy S/P cholecystectomy Social History Smoked in Last 30 Days: No Use of substances other than those prescribed or required for medical reasons: No Advance Directives: No Advance Directives Information Provided: Yes Meds Allergies Allergy/AdvReac Type Severity Reaction Status Date / Time diclofenac (DICLOFENAC) Allergy Severe GI PAIN Verified 01/26/25 07:38 naproxen (NAPROXEN) Allergy Severe FLUID Verified 01/26/25 07:38 RETENTION oxycodone (OXYCODONE) Allergy Severe DISORIENTED Verified 01/26/25 07:38 /LETHARGIC Tylenol/Codeine #3 Allergy Severe Gastrointestinal Uncoded 01/26/25 07:38 Upset Active Medications: Current Medications Lactated Ringer's (Lr) 1,000 mls @ 80 mls/hr IVCONT .[id number] [facility] Last Admin: 01/26/25 11:34 Dose: 80 mls/hr Piperacillin Sod/Tazobactam (Sod 3.375 gm/ Sodium Chloride) 50 mls @ 100 mls/hr IV Q6H [facility] Home Medications ?Medication ?Instructions ?Recorded ?Confirmed ?Last Taken ?Type calcium carbonate 600 mg PO DAILY 01/26/2501/25/25 History levothyroxine 50 mcg tablet 50 mcg PO DAILY@0600 01/2601/26/25 01/25/25 History losartan 100 1 tab PO DAILY 01/26/2501/1301/25/25 History mg-hydrochlorothiazide 25 mg tablet magnesium oxide 400 mg PO DAILY 01/26/2501/25/25 History multivitamin 1 tab PO DAILY 01/26/2501/1301/25/25 History simvastatin 20 mg tablet 20 mg PO BEDTIME 01/26/2501/25/25 History Physical Exam 2 Vital Signs and Narrative: Vital Signs: Last Vital Signs Temp 97.7 F 01/26/25 11:27 Pulse 69 01/26/25 11:27 Resp 17 01/26/25 11:27 BP 122/48 L 01/26/25 11:27 Pulse Ox 95 01/26/25 11:27 O2 Del Method Room Air 01/26/25 11:27 BMI result Body Mass Index 30.6 Const: Other: Constitutional - Awake and Alert, No apparent distress Eyes - PERRLA, EOMI Cardiovascular - S1S2, RRR, No edema Respiratory - Normal lung expansion, Normal respiratory effort, No respiratory distress, CTA bilaterally Gastrointestinal - soft with LLQ TTP without rebound/guarding - No CVA tenderness Extremities - no calf tenderness bilaterally, no swelling Musculoskeletal - Normal inspection, normal ROM Skin - Warm/Dry Neurological - Alert & oriented x3, No focal deficit Psychological - Appropriate affect Results Labs 01/26/25 07:58 01/26/25 07:58 Labs: Laboratory Results - last 24 hr 01/26/25 01/26/2501/26/25 07:53 07:58 08:31 MCV 88.2 MCH 29.7 MCHC 33.7 RDW 12.1 Plt Count 266 MPV 9.1 L Immature Gran % (Auto) 0.4 Neut % (Auto) 77.6 H Lymph % (Auto) 12.2 L [place] % (Auto) 9.2 Eos % (Auto) 0.2 Baso % (Auto) 0.4 Lymph # (Auto) 1.8 [place] # (Auto) 1.4 H Eos # (Auto) 0.0 Baso # (Auto) 0.1 Abs Immat Gran (auto) 0.06 H Absolute Neuts (auto) 11.4 H Absolute Nucleated RBC 0.000 Nucleated RBC % (auto) 0.0 Anion Gap 13 Estim Creat Clear Calc 66.4 Estimated GFR > 60 Random Glucose 124 H Lactic Acid 2.2 H* Calcium 9.6 Magnesium 1.7 Total Bilirubin 0.7 Direct Bilirubin 0.2 AST 34 H ALT 21 Alkaline Phosphatase 91 Total Protein 6.9 Albumin 4.0 Lipase 24 Influenza Type A (PCR) NEGATIVE Influenza Type B (PCR) NEGATIVE RSV RNA Qual (PCR) NEGATIVE SARS-CoV-2 RNA (RT-PCR) NEGATIVE Imaging Radiologist's Impressions: Impressions Abdomen/Pelvis CT 01/26/25 07:46 IMPRESSION: Diverticulitis at the junction of the descending and sigmoid colon as described. Electronically signed by: Ed Nixon MD 01/26/2025 09:08 AM EDT Assessment and Plan (1) Diverticulitis: Status: Acute Plan 79 F with chronic constipation presenting with LLQ pain, found to have diverticulitis. Endorses similar symptoms 1 month prior. 1. Acute diverticulitis IV zosyn clear liquids if she can tolerate; advance when possible based on history, possibly recurrent (last month with resolution without treatment) -- last colonoscopy in 2019 IV analgesics, IVF 2. HTN on hctz-losartan at home -- hold today, BP normal 3. Chest pain appears to be related to anxiety; EKG without acute ischemia / trop neg x 2 4. Hypothyroidism synthroid 5. Chronic constipation bowel regime 6. HLD statin Full Code DVT pptx - Lovenox Quality Stroke Does the patient have a stroke diagnosis?: No VTE Prior VTE?: No VTE Risk Level:: Medical - moderate - high VTE Device Contraindication: N/A - Device Ordered VTE Drug Contraindication: N/A - Med Ordered
[2025-01-26 12:05] LABS: ~Lactic Acid-LAB USE ONLY 2.3 mmol/L (0.5-2.0)
--- NOTE | 2025-01-26 12:21 | MHC.EDTECH ---
Pt transported to hospital bed
--- NOTE | 2025-01-26 12:43 | PHA.MEDREC ---
Addendum entered by Jessica Hart RPh 01/26/25 12:46: reviewed by [facility], pt stated no metoprolol. Original Note: Pharmacy Consult ? Medication Reconciliation Pharmacy has completed the medication reconciliation. Patient was able to confirm all her medications. Patient last took her medications yesterday.
[2025-01-26 12:46] LABS: Appearance Urine Clear; Glucose Urine UA Negative (Negative); PH 6.0 (5.0-9.0); Specific Gravity - Urine >= 1.030 (1.005-1.025); UMIC TRIGGER UACC YES
[2025-01-26 13:36] LABS: Reflex Lactate? 2 Y
[2025-01-26 14:08] LABS: ~Lactic Acid-LAB USE ONLY 1.6 mmol/L (0.5-2.0)
[2025-01-27] MEDS: Lactated Ringers 1,000 ML 80 ML IVCONT ×2 (01:15→14:21)
[2025-01-27 04:00] VITALS: BP 121/58; PULSE 64; RESP 16; TEMP 36.9; O2SAT 91
[2025-01-27 05:10] VITALS: O2SAT 94
[2025-01-27 06:56] LABS: Anion Gap 12 (12-20); Blood Urea Nitrogen 12 mg/dL (9-16); Calcium 8.7 mg/dL (8.4-10.2); Carbon Dioxide 27 mmol/L (22-29); Chloride 104 mmol/L (96-108); Creatinine Clr Calc Pharmacy 64.3; Estimated Glomerular Filt Rate > 60; Potassium 3.6 mmol/L (3.3-5.1); Sodium 139 mmol/L (135-145)
[2025-01-27 07:24] VITALS: BP 113/55; PULSE 71; RESP 14; TEMP 37.3; O2SAT 95
[2025-01-27 08:31] LABS: Hematocrit 31.0 % (37.0-47.0); Hemoglobin 10.4 g/dl (12.0-16.0); Mean Corpuscular HGB Conc 33.5 g/dl (31.0-35.0); Mean Corpuscular Hemoglobin 29.8 pg (27.0-33.0); Mean Corpuscular Volume 88.8 fL (80.0-98.0); NRBC Abs Auto 0.000 X10*3/uL (0.0-0.012); NRBC Pct Auto 0.0 /100WBC (0.0-0.2); Platelet Count 238 X10*3/uL (160-400); Red Blood Count 3.49 X10*6/uL (4.20-5.50); White Blood Count 5.8 X10*3/uL (4.8-10.8)
--- NOTE | 2025-01-27 11:01 | MHC.CM.PN ---
IMM DELIVERED. PT LIVES WITH SPOUSE AND IS FUNCTIONALLY INDEPENDENT. +DRIVES. NO SERVICES OR DME. + HCP (COPY AT HOME) PCP AMANDA GRIFFIN AT [facility] DP: HOME, NO SERVICES IS ANTICIPATED. PT'S DAUGHTER WILL TRANSPORT HOME. CM WILL CONTINUE TO FOLLOW FOR ANY CHANGE TO DC PLAN.
--- NOTE | 2025-01-27 13:41 | HO.PM.IMPN ---
Subjective Subjective Date of Service: 01/27/25 Interval History: Seen and examined this morning Follow-up for diverticulitis Patient reporting improvement in left lower quadrant abdominal pain. Denies any nausea or vomiting. No diarrhea Constitutional Constitutional: Denies chills and Denies fever(s) Cardiovascular Cardiovascular: Denies chest pain Gastrointestinal Gastrointestinal: Reports abdominal pain, Denies nausea and Denies vomiting Physical Exam Vital Signs: Vital Signs: Last Vital Signs Temp 99.2 F 01/27/25 07:24 Pulse 71 01/27/25 07:24 Resp 14 01/27/25 07:24 BP 113/55 L 01/27/25 07:24 Pulse Ox 95 01/27/25 07:24 O2 Del Method Room Air 01/27/25 07:24 BMI result Body Mass Index 29.6 Const: General: cooperative, comfortable, alert and awake Nutritional Appearance: average body habitus Orientation/consciousness: patient oriented x3 Resp: Effort & Inspection: normal respiratory effort, able to speak in complete sentences, no respiratory distress and no use of accessory muscles Auscultation: clear to auscultation bilaterally GI: Other: soft, non-distended; tender left side; no guarding or rebound Neuro: General: patient oriented x3, moves all extremities and CN's II-XI intact bilaterally Objective Data Active Medications Acetaminophen (Acetaminophen 325 Mg Tablet) 650 mg PO Q6H PRN PRN Reason: Pain, Mild 1-3,fever,headache Last Admin: 01/27/25 11:18 Dose: 650 mg Documented By: KEYUR Atorvastatin Calcium (Atorvastatin Calcium 10 Mg Tablet) 10 mg PO BEDTIME [facility] Last Admin: 01/26/25 20:31 Dose: 10 mg Documented By: JONE Enoxaparin Sodium (Enoxaparin Sodium 40 Mg/0.4 Ml Syringe) 40 mg SUBCUT Q24H [facility] Last Admin: 01/27/25 11:18 Dose: 40 mg Documented By: KEYUR Lactated Ringer's (Lr) 1,000 mls @ 80 mls/hr IVCONT .[id number] [facility] Last Infusion: 01/27/25 03:58 Dose: 80 mls/hr Documented By: TAWNYA Piperacillin Sod/Tazobactam (Sod 3.375 gm/ Sodium Chloride) 50 mls @ 100 mls/hr IV Q6H [facility] Last Infusion: 01/27/25 09:50 Dose: Infused Documented By: KEYUR Levothyroxine Sodium (Levothyroxine Sodium 50 Mcg Tablet) 50 mcg PO DAILY@0600 [facility] Last Admin: 01/27/25 05:54 Dose: 50 mcg Documented By: JONE Magnesium Oxide (Magnesium Oxide 400 Mg Tablet) 400 mg PO DAILY [facility] Last Admin: 01/27/25 08:43 Dose: 400 mg Documented By: KEYUR Morphine Sulfate (Morphine Sulfate 2 Mg/Ml Cartridge) 2 mg IVPUSH Q4H PRN; Protocol PRN Reason: Pain, Severe (Pain Scale 7-10) Last Admin: 01/26/25 20:30 Dose: 2 mg Documented By: JONE Multivitamins/Vitamin C (Multivitamin Tablet) 1 tab PO DAILY [facility] Last Admin: 01/27/25 08:43 Dose: 1 tab Documented By: KEYUR Polyethylene Glycol (Polyethylene Glycol 3350 17 Gm Powd.Pack) 17 gm PO DAILY [facility] Last Admin: 01/27/25 08:43 Dose: 17 gm Documented By: KEYUR Labs 01/27/25 05:42 01/27/25 05:42 Labs: Laboratory Results - last 24 hr 01/26/25 01/27/25 13:49 05:42 MCV 88.8 MCH 29.8 MCHC 33.5 RDW 12.3 Plt Count 238 MPV 9.6 Absolute Nucleated RBC 0.000 Nucleated RBC % (auto) 0.0 Hold Purple Top SEE NOTE Anion Gap 12 Estim Creat Clear Calc 64.3 Estimated GFR > 60 Random Glucose 91 Lactic Acid F/U @ 4Hr 1.6 Calcium 8.7 D Microbiology Microbiology Results: Microbiology 01/26/25 08:31 Blood Culture - Preliminary Blood - Venous No growth after 24 hours. 01/26/25 08:32 Blood Culture - Preliminary Blood - Venous No growth after 24 hours. Assessment and Plan (1) Diverticulitis: Status: Acute Plan This is an 79 F with chronic constipation presenting with LLQ pain, found to have diverticulitis. Endorses similar symptoms 1 month prior. 1. Acute diverticulitis no sepsis. white count resolved, abdominal pain improving IV zosyn advance to full liquids based on history, possibly recurrent (last month with resolution without treatment) -- last colonoscopy in 2019 continue IV analgesics, IVF 2. HTN on hctz-losartan at home -- hold today, BP controlled at this time 3. Chest pain appears to be related to anxiety; EKG without acute ischemia / trop neg x 2 resolved 4. Hypothyroidism synthroid 5. Chronic constipation bowel regime 6. HLD statin Full Code DVT pptx - Lovenox Quality Stroke Does the patient have a stroke diagnosis?: No VTE Prior VTE?: No VTE Risk Level:: Medical - moderate - high VTE Device Contraindication: N/A - Device Ordered VTE Drug Contraindication: N/A - Med Ordered
[2025-01-27 16:04] VITALS: BP 143/68; PULSE 58; RESP 12; TEMP 36.1; O2SAT 93
[2025-01-27 19:03] VITALS: BP 159/70; PULSE 78; RESP 18; TEMP 36.6; O2SAT 96
[2025-01-28 01:30] VITALS: BP 162/60
[2025-01-28 03:03] VITALS: BP 128/61; PULSE 57; RESP 18; TEMP 36.5; O2SAT 95
[2025-01-28] MEDS: Lactated Ringers 1,000 ML 80 ML IVCONT (04:05)
[2025-01-28 07:30] VITALS: BP 165/68; PULSE 55; RESP 16; TEMP 37; O2SAT 96
--- NOTE | 2025-01-28 10:36 | HO.PM.IMPN ---
Subjective Subjective Date of Service: 01/28/25 Interval History: Seen and examined this morning Follow-up for diverticulitis Patient reporting improvement in left lower quadrant abdominal pain. Denies any nausea or vomiting. No diarrhea Constitutional Constitutional: Denies chills and Denies fever(s) Cardiovascular Cardiovascular: Denies chest pain Gastrointestinal Gastrointestinal: Reports abdominal pain, Denies nausea and Denies vomiting Physical Exam Vital Signs: Vital Signs: Last Vital Signs Temp 98.6 F 01/28/25 07:30 Pulse 55 01/28/25 07:30 Resp 16 01/28/25 07:30 BP 165/68 H 01/28/25 07:30 Pulse Ox 96 01/28/25 07:30 O2 Del Method Room Air 01/28/25 07:30 BMI result Body Mass Index 29.6 Objective Data Active Medications Acetaminophen (Acetaminophen 325 Mg Tablet) 650 mg PO Q6H PRN PRN Reason: Pain, Mild 1-3,fever,headache Last Admin: 01/27/25 11:18 Dose: 650 mg Documented By: KEYUR Atorvastatin Calcium (Atorvastatin Calcium 10 Mg Tablet) 10 mg PO BEDTIME ON LICENSE OF [facility] Last Admin: 01/27/25 20:53 Dose: 10 mg Documented By: RASHEED Docusate Sodium (Docusate Sodium 100 Mg Capsule) 100 mg PO BEDTIME ON LICENSE OF [facility] Last Admin: 01/27/25 20:53 Dose: 100 mg Documented By: RASHEED Enoxaparin Sodium (Enoxaparin Sodium 40 Mg/0.4 Ml Syringe) 40 mg SUBCUT Q24H ON LICENSE OF [facility] Last Admin: 01/27/25 11:18 Dose: 40 mg Documented By: KEYUR Lactated Ringer's (Lr) 1,000 mls @ 80 mls/hr IVCONT .[id number] ON LICENSE OF [facility] Last Admin: 01/28/25 04:05 Dose: 80 mls/hr Documented By: RASHEED Piperacillin Sod/Tazobactam (Sod 3.375 gm/ Sodium Chloride) 50 mls @ 100 mls/hr IV Q6H ON LICENSE OF [facility] Last Infusion: 01/28/25 08:48 Dose: Infused Documented By: MERARY Levothyroxine Sodium (Levothyroxine Sodium 50 Mcg Tablet) 50 mcg PO DAILY@0600 ON LICENSE OF [facility] Last Admin: 01/28/25 05:51 Dose: 50 mcg Documented By: RASHEED Losartan Potassium (Losartan Potassium 50 Mg Tablet) 100 mg PO DAILY ON LICENSE OF [facility]; Protocol Last Admin: 01/28/25 08:05 Dose: 100 mg Documented By: MERARY Magnesium Oxide (Magnesium Oxide 400 Mg Tablet) 400 mg PO DAILY ON LICENSE OF [facility] Last Admin: 01/28/25 08:05 Dose: 400 mg Documented By: MERARY Morphine Sulfate (Morphine Sulfate 2 Mg/Ml Cartridge) 2 mg IVPUSH Q4H PRN; Protocol PRN Reason: Pain, Severe (Pain Scale 7-10) Last Admin: 01/26/25 20:30 Dose: 2 mg Documented By: JONE Multivitamins/Vitamin C (Multivitamin Tablet) 1 tab PO DAILY ON LICENSE OF [facility] Last Admin: 01/28/25 08:06 Dose: 1 tab Documented By: MERARY Polyethylene Glycol (Polyethylene Glycol 3350 17 Gm Powd.Pack) 17 gm PO DAILY ON LICENSE OF [facility] Last Admin: 01/28/25 08:05 Dose: 17 gm Documented By: MERARY Labs 01/27/25 05:42 01/27/25 05:42 Microbiology Microbiology Results: Microbiology 01/26/25 08:31 Blood Culture - Preliminary Blood - Venous No growth after 48 hours. 01/26/25 08:32 Blood Culture - Preliminary Blood - Venous No growth after 48 hours. Assessment and Plan (1) Diverticulitis: Status: Acute Plan 79 F with chronic constipation presenting with LLQ pain, found to have diverticulitis. Endorses similar symptoms 1 month prior. Acute diverticulitis no sepsis. white count resolved, abdominal pain improving IV zosyn advance to reg diet, bland continue IV analgesics, IVF HTN on hctz-losartan at home, restart Losartan Chest pain appears to be related to anxiety; EKG without acute ischemia / trop neg x 2 resolved Hypothyroidism synthroid Chronic constipation bowel regime HLD statin Full Code DVT pptx - Lovenox Quality Stroke Does the patient have a stroke diagnosis?: No VTE Prior VTE?: No VTE Risk Level:: Medical - moderate - high VTE Device Contraindication: N/A - Device Ordered VTE Drug Contraindication: N/A - Med Ordered
[2025-01-28 15:13] VITALS: BP 166/64; PULSE 79; RESP 16; TEMP 37; O2SAT 94
[2025-01-28 19:57] VITALS: BP 179/77; PULSE 86; RESP 18; TEMP 36.3; O2SAT 95
[2025-01-29 03:02] VITALS: BP 129/61; PULSE 53; RESP 18; TEMP 36.3; O2SAT 98
[2025-01-29 07:18] VITALS: BP 149/69; PULSE 58; RESP 16; TEMP 36.7; O2SAT 95
--- NOTE | 2025-01-29 07:21 | PM.DS ---
DS: Providers Provider Date of Service: 01/29/25 Date of admission: 01/26/25 11:50 Date of discharge: 01/29/25 Primary care physician: Nonstaff Physician DS: Diagnosis Discharge Diagnosis (1) Diverticulitis: Status: Acute DS: Summary Hospital Course Hospital Course: The patient is an 79 yo F with a PMH of HTN, HLD, cholecystectomy, hysterectomy and constipation who presents to the emergency room with about a 1 day history of left lower quadrant abdominal pain, which is constant and stabbing/aching in nature. The patient endorses a history of chronic constipation with her last bowel movement about 4 days prior to hospitalization. She endorses similar but significantly milder symptoms about 1 month prior push resolved without treatment. Due to the ongoing nature of her symptoms, she presented to the emergency room. The patient also endorse chest pain. She reports she had workup last month for ongoing chest pain including a stress test and echocardiography which she reports were ?normal. EKG in the emergency room does not show any acute ischemic changes and her troponins are flat x2. The patient reports resolution of her chest pain and thinks it may have been related to anxiety from her abdominal pain. In the emergency room the patient's workup revealed WBC 14, BUN 23, lactate 2.2 with repeat 2.3, CT imaging showing diverticulosis and diverticulitis as well as large amount of stool throughout the colon. She was treated with IV Zofran, IV morphine, p.o. Ativan, 1 L IV fluids and IV antibiotics. She remained symptomatic and hence will be now admitted to the hospital for further care. Acute diverticulitis, no sepsis. white count resolved, abdominal improved. treated with IV zosyn. fluids and analgesics. Diet advanced to regular. Complete course of levaquin for total of 7 days of abx. [place] diet for the next week HTN on hctz-losartan. stable blood pressure, continue Chest pain appears to be related to anxiety; EKG without acute ischemia / trop neg x 2, resolved Hypothyroidism synthroid Chronic constipation bowel regime HLD statin Time Attestation Discharge Coordination Time (in mins): 42 Quality: Safe Use of Opioids Does Pt have an Active Cancer Diagnosis on the Problem List?: No Quality: Stroke Does the patient have a stroke diagnosis?: No Physical Exam Exam: Exam: Appearing in no acute distress head is normocephalic atraumatic eyes pupils are PERRLA sclera is anicteric mouth throat mucous membranes are intact and moist neck is supple no lymphadenopathy, no JVD noted lung sounds are clear to auscultation heart regular rate rhythm, clear S1, S2 positive bowel sounds, abdomen is soft, nontender neuro patient is alert x3, no focal deficits Vital Signs: Vital Signs: Last Vital Signs Temp 97.3 F 01/29/25 03:02 Pulse 53 01/29/25 03:02 Resp 18 01/29/25 03:02 BP 129/61 01/29/25 03:02 Pulse Ox 98 01/29/25 03:02 O2 Del Method Room Air 01/29/25 03:02 BMI result Body Mass Index 29.6 DS: Data Data Completed and Pending Labs on day of discharge: Preliminary micro results at discharge 01/26/25 08:31 Blood Culture - Preliminary Blood - Venous No growth after 48 hours. 01/26/25 08:32 Blood Culture - Preliminary Blood - Venous No growth after 48 hours. Discharge Plan Discharge Anticipated Discharge Date/Time: 01/29/25 07:20 Patient Disposition: Home, Self-Care Discharge Diagnosis: Diverticulitis Discharge Medications: New levofloxacin 750 mg tablet 750 mg PO DAILY Qty: 4 0RF Continued losartan-hydrochlorothiazide 100-25 mg tablet 1 tab PO DAILY calcium carbonate 600 mg calcium (1,500 mg) tablet 600 mg PO DAILY levothyroxine 50 mcg tablet 50 mcg PO DAILY@0600 simvastatin 20 mg tablet 20 mg PO BEDTIME multivitamin Tablet 1 tab PO DAILY magnesium oxide 400 mg magnesium Tablet 400 mg PO DAILY Discharge Orders: Discharge Order (Routine); Ordered 01/29/25 Ordered By: Maryjane Elliott Diet: Advance to usual diet Activity on Discharge: As tolerated Stand Alone Forms: Patient Portal Discharge page Print Language: Persian Care Plan Goals: Complete course of antibiotics Health Concerns: Diverticulitis Plan of Treatment: Follow up with primary care provider as needed Take all medications as prescribed Assessment: See discharge summary
[2025-01-29 11:21] VITALS: BP 170/80; PULSE 79; RESP 16; TEMP 36.7; O2SAT 97
--- NOTE | 2025-01-29 11:57 | MHC.CM.PN ---
PT TO [place] HOME TODAY WITH NO SERVICES VIA PRIVATE TRANSPORT
== END 2025-01-29 11:23 | disposition home or self-care (01) | DRG 392 ==
LOC: HO.ED 11:30 → HO.EDOVER 12:10 → HO.S3 16:03
PROVIDERS: Physician Assistant Medical; Admitting Provider Family Medicine; Emergency Provider Emergency Medicine; Visit Provider Nurse Practitioner Acute Care
DX: K57.30 Diverticulosis of large intestine without perforation or abscess without bleeding (principal); I10 Essential (primary) hypertension; E78.5 Hyperlipidemia, unspecified; E03.9 Hypothyroidism, unspecified; K59.09 Other constipation; F41.9 Anxiety disorder, unspecified; Z20.822 Contact with and (suspected) exposure to COVID-19; Z87.891 Personal history of nicotine dependence; Z79.890 Hormone replacement therapy; Z79.899 Other long term (current) drug therapy
CPT/HCPCS: 36415; 74177; 80048; 80076; 81001; 83605; 83690; 83735; 84484; 85025; 85027; 87040; 87637; 93005; 99285; J0131; J1650; J2270; J2405; J2543; J7120; Q9967

== ENCOUNTER → 2025-01-26 07:34 | Outpatient (BNV) | payer MEDICARE, SELFPAY | PROVIDERS: Emergency Provider Emergency Medicine; Visit Provider Radiology Diagnostic Radiology | DX: R10.32 Left lower quadrant pain (principal) | CPT/HCPCS: 74177 ==

== ENCOUNTER → 2025-01-26 07:34 | Outpatient (BNV) | payer MEDICARE, SELFPAY | PROVIDERS: Admitting Provider Family Medicine; Emergency Provider Emergency Medicine; Visit Provider Internal Medicine Cardiovascular Disease | DX: I45.10 Unspecified right bundle-branch block (principal); R07.9 Chest pain, unspecified | CPT/HCPCS: 93010 ==

== ENCOUNTER → 2025-01-26 11:50 | Outpatient (BNV) | payer MEDICARE, SELFPAY | PROVIDERS: Admitting Provider Family Medicine; Emergency Provider Emergency Medicine; Visit Provider Family Medicine | DX: K57.92 Diverticulitis of intestine, part unspecified, without perforation or abscess without bleeding (principal) | CPT/HCPCS: 99223; 99232 ==